=== PATIENT | male | born 1950 | race Caucasian/White ===

== ENCOUNTER → 2019-03-29 | Outpatient (CLI) | payer MEDICARE ==
[~2019-03-29] MED LIST: CATHETER FLUSH 10 ML SYR IV PRN; HOLD METFORMIN - RECEIVED CONTRAST 20 ML VIAL IV SCH; IOHEXOL 350 MG/ML 100 ML (OMNIPAQUE 350) VIAL IV ONE; NS 100 ML (IVPB) BAG IV ONE
[2019-03-29 13:25] LABS: ALANINE AMINOTRANSFERASE 15 U/L (0-55); ALKALINE PHOSPHATASE 105 U/L (40-136); BILIRUBIN,TOTAL 0.5 MG/DL (0.1-1.0); BUN/CREATININE RATIO 16; CALCIUM 9.5 MG/DL (8.5-10.1); CARBON DIOXIDE 27 MMOL/L (21-32); CHLORIDE 103 MMOL/L (98-107); CREATININE SERUM 0.75 MG/DL (0.60-1.30); GFR ESTIMATED > 60; GLUCOSE 154 MG/DL (70-105); SODIUM 140 MMOL/L (135-145)
[2019-03-29 13:26] LABS: ALBUMIN 4.4 GM/DL (3.2-4.5); TOTAL PROTEIN 7.6 GM/DL (6.4-8.2)
--- NOTE | 2019-03-29 14:09 | Diagnostic Imaging Report ---
PROCEDURE: CT abdomen and pelvis with contrast, rule out appendicitis. TECHNIQUE: Multiple contiguous axial images were obtained through the abdomen and pelvis after the administration of intravenous contrast. INDICATION: Epigastric pain, back pain with radiation into the front of the abdomen. CORRELATION STUDY: None. FINDINGS: LOWER THORAX: Clear. LIVER: Unremarkable. GALLBLADDER: Present and unremarkable. No bile duct dilatation. SPLEEN: Unremarkable. PANCREAS: Unremarkable. ADRENAL GLANDS: Unremarkable. KIDNEYS: Calcification of the pole of the right kidney favors probable vascular calcification. Right kidney collecting system unremarkable. 9.9 x 7.3 x 10.4 cm cyst of the lateral left kidney. Slight displacement of the kidney. Otherwise unremarkable appearance. No obstruction. ABDOMINAL AORTA: Moderate scattered wall calcification, nonaneurysmal. Major branches appearing patent proximally. Portal venous system patent. GASTROINTESTINAL TRACT: Very small hiatal hernia. Stomach is largely collapsed. Questionable wall thickening of the pylorus. Small bowel without evidence for obstruction. There are questionable areas of small bowel wall thickening centrally possibly nonspecific enteritis not excluded. Negative appearance partially visualized right lower quadrant. Colon with colonic diverticulosis. No acute diverticulitis. No significant abdominal ascites or free air. URINARY BLADDER: Approximately 13 mm slightly dense nodule lateral margins of the urinary bladder posteriorly. REPRODUCTIVE: Prostate gland slightly prominent. OSSEOUS STRUCTURES: Mildly advanced degenerative changes of the lower lumbar spine. Various degrees of spinal canal and foraminal stenosis. OTHER: None. IMPRESSION: 1. Question a few mildly prominent thickened loops of small bowel may reflect nonspecific enteritis. No evidence for obstruction. Negative for appendicitis or diverticulosis. Very slight wall thickening of pylorus can be seen with underlying peptic ulcer disease or simply owing to its decompressed state. 2. Rather sizable solitary left renal cyst. 3. Concern for potential mass lateral margins of the urinary bladder. Urological consultation with the cystoscopy would be recommended. Dictated by: Dictated on workstation # [id number]
== END ==
LOC: RAD FS 13:03
PROVIDERS: ATTEND Family Medicine
DX: N28.1 Cyst of kidney, acquired (principal); M54.41 Lumbago with sciatica, right side
CPT/HCPCS: 36415; 74177; 80053

== ENCOUNTER 2019-08-29 08:25 | Outpatient (RCR) | payer MEDICARE ==
[~2019-08-29] VITALS: Ht 190 cm; Wt 127.0 kg
[~2019-08-29 08:25] MED LIST changes: -CATHETER FLUSH 10 ML SYR IV PRN; -HOLD METFORMIN - RECEIVED CONTRAST 20 ML VIAL IV SCH; -IOHEXOL 350 MG/ML 100 ML (OMNIPAQUE 350) VIAL IV ONE; +NAPR220T66 PO; -NS 100 ML (IVPB) BAG IV ONE; +TMSL.4C PO
[2019-09-02] MEDS ORDERED: PANT40TA3 PO (12:01)
[2019-09-02] MEDS ORDERED: SUCR1TAB36 PO (12:01)
== END 2019-08-29 16:26 | disposition home or self-care (01) ==
LOC: PREOP 08:25
PROVIDERS: ATTEND Surgery
DX: Z01.818 Encounter for other preprocedural examination (principal); Z01.812 Encounter for preprocedural laboratory examination; R10.13 Epigastric pain
CPT/HCPCS: 87635

== ENCOUNTER → 2020-11-02 | Outpatient (CLI) | payer MEDICARE, OTHER ==
[~2020-11-02] MED LIST changes: +PANT40TA52 PO; +SUCR1TAB36 PO
--- NOTE | 2020-11-02 16:04 | Diagnostic Imaging Report ---
INDICATION: Nontraumatic mid back pain. COMPARISON: No relevant comparison. TECHNIQUE: Multiple multisequence noncontrasted thoracic spinal MRI performed. FINDINGS: There is abnormal marrow edema diffusely involving most notably the sixth thoracic vertebral body but also at the T7 and T8 vertebral bodies. There are degenerative changes at these levels however the marrow edema is out of proportion to the degree of chronic spondylosis and aside from desiccation and dehydration the intervertebral discs at those levels did not show abnormal signal. No associated fracture is found. No paraspinal mass, hemorrhage, or fluid collection. No adjacent soft tissue edema. There was no substantial marrow edema in the pedicles, lamina or spinous processes at those levels. Remaining levels were without marrow edema. The marrow edema at those levels is diffusely found throughout the vertebral bodies and not particularly centered about the endplates as typically is seen in the setting of degenerative marrow edema. The remaining levels were unremarkable. The spinal canal and neural foramina were all widely patent at each vertebral body and disc space level. There is predominantly anterior osteophyte disc material throughout the mid to lower thoracic spine. Degenerative disc space narrowing and disc desiccation is most advanced at the T6-T7 and T7-T8 discs. The spinal cord itself has a normal volume and normal morphology and normal signal intensity at each level. The ligamentous structures are intact. No acute epidural abnormality. No intrathecal pathology. IMPRESSION: Abnormal marrow edema involves the vertebral bodies of T6, T7 and T8. While there is substantial spondylosis greatest at those levels the pattern of edema is more diffuse and somewhat atypical for mere degenerative change. I would recommend repeat scanning following contrast to see if there is a suspicious degree of enhancement however in the setting of marrow edema at least some degree of enhancement would be likely. The lack of abnormal elevated T2 signal within the discs themselves would make an infectious etiology unlikely. The focality of the abnormality isolated to the vertebral bodies of these three consecutive levels would make neoplasm an unlikely consideration as well but again the etiology is not clear and I feel post IV contrast-enhanced imaging may be helpful. Given the remaining levels were unremarkable and there is a normal spinal cord while degenerative disease is present, there is no canal or foraminal stenosis. Dictated by: Dictated on workstation # [id number]
== END ==
LOC: RAD 14:45
PROVIDERS: ATTEND Family Medicine
DX: M47.814 Spondylosis without myelopathy or radiculopathy, thoracic region (principal); S22.000A Wedge compression fracture of unspecified thoracic vertebra, initial encounter for closed fracture; X58.XXXA Exposure to other specified factors, initial encounter
CPT/HCPCS: 72146

== ENCOUNTER → 2020-11-11 | Outpatient (CLI) | payer MEDICARE, OTHER ==
[~2020-11-11] MED LIST changes: +GADOBUTROL 10 MMOL/10 ML (GADAVIST) VIAL IV ONE
--- NOTE | 2020-11-11 11:27 | Diagnostic Imaging Report ---
CLINICAL INDICATION: Patient had recently MRI thoracic spine without. Radiologist suggested return for contrast. EXAM: MRI of the thoracic spine performed without and with 10 mL of Gadavist IV contrast. Sequences include sagittal T1, axial T1, axial T1 post IV contrast, and sagittal T1 fat-sat post IV contrast. COMPARISON: MRI of the thoracic spine without contrast dated 11/02/2020. FINDINGS: There is abnormal low T1 signal which correlated to high T2 signal in the comparison MRI involving the T6, T7, and T8 vertebrae. There is associated enhancement involving these vertebrae and enhancement of the intervertebral discs of the T6-T7 and T7-T8 levels. There are no significant paravertebral inflammatory changes seen. There is endplate irregularity at the T6-T7 and T7-T8 regions also noted on the prior MRI. These findings may be related to early osteomyelitis/discitis versus advanced degenerative changes. There are no other areas of abnormal IV contrast enhancement. The remainder of this exam is stable. Stable thoracic spine degenerative disease. IMPRESSION: 1: There is enhancement involving the abnormal signal involving the T6, T7, and T8 vertebrae with also enhancement of the intervertebral discs. There is endplate irregularity of the endplates as well. There is no significant paravertebral inflammatory process. These findings may represent early osteomyelitis/discitis, but advanced degenerative changes cannot be completely excluded. Follow-up MRI of the thoracic spine in one month with and without contrast is suggested for further evaluation. 2: The remainder of the thoracic spine is stable. Dictated by: Dictated on workstation # [id number]
== END ==
LOC: RAD 10:15
PROVIDERS: ATTEND Family Medicine
DX: M54.6 Pain in thoracic spine (principal)
CPT/HCPCS: 72157